=== PATIENT | female | born 1990 | race Caucasian/White ===

== ENCOUNTER 2017-06-05 08:14 | Emergency (ER) | payer OTHER ==
[~2017-06-05] VITALS: Ht 172.7 cm; Wt 88.5 kg
[2017-06-05 08:16] VITALS: BP_SYST 73; PULSE 90; RESP 18; TEMP 97.3; O2SAT 100
[2017-06-05] MEDS ORDERED: PREN29TA PO (08:22)
[2017-06-05] MEDS ORDERED: LEVO112T2 PO (08:22)
[2017-06-05] MEDS ORDERED: METF500T PO (08:22)
[2017-06-05] MEDS ORDERED: SODIUM CHLOR 0.9% 1000 ML INJ 1,000 ML IV ONE (08:28)
[2017-06-05 08:30] VITALS: BP 130/68; PULSE 86; RESP 16; TEMP 97.8; O2SAT 99
--- NOTE | 2017-06-05 08:53 | PD ---
HPI Chief Complaint: Related Problem Time Seen by Provider: 08:20 Travel History International Travel<30 days: No Contact w/Intl Traveler<30days: No History of Present Illness HPI The patient is a 26-year-old female who presents emergency Department for vaginal bleeding in . Patient is whose last menstrual cycle was April 17, approximately 7 weeks per patient's report. The patient has followed up with her primary physician but has not seen an elevator builder or obtain an ultrasound in regards to this . The patient is currently on vacation from [employer] from [place]. The patient developed vaginal bleeding last night which has some bright red blood followed by dark red blood clots. She denies any pelvic pain or discomfort. She denies any dysuria, frequency, urgency, or discharge. Symptoms are moderate. The patient does have a history of polycystic ovarian syndrome and hypothyroidism. Symptoms are mild, related to , no current alleviating factors. PFSH Past Medical History Narrative Medical Polycystic ovarian syndrome, hypothyroidism, endometriosis Diabetes: Yes Patient Takes Glucophage: Yes Diminished Hearing: No Medical other: Yes (DM) Thyroid Disease: Yes Tetanus Vaccination: > 5 Years Influenza Vaccination: No ?: LMP: 04/17/17 : 1 Past Surgical History Other Surgery: Yes (laparascopy for endometriosis ) Social History Alcohol Use: No Tobacco Use: No Substance Use: No Allergies-Medications (Allergen,Severity, Reaction): Coded Allergies: No Known Allergies (Verified Allergy, Unknown, 06/05/17) Reported Meds & Prescriptions Reported Meds & Active Scripts Active Reported Plus Iron 29-1 mg ( Vit-Iron Carbonyl) 29 Mg Iron-1 Mg Tab 1 Tab PO DAILY Levothyroxine (Levothyroxine Sodium) 112 Mcg Tab 112 Mcg PO DAILY Metformin (Metformin HCl) 500 Mg Tab 500 Mg PO BIDPC Review of Systems Except as stated in HPI: all other systems reviewed are Neg General / Constitutional: No: Fever Cardiovascular: No: Chest Pain or Discomfort Respiratory: No: Shortness of Breath Gastrointestinal: No: Nausea, Vomiting, Abdominal Pain Genitourinary: Positive: Vaginal Bleeding, No: Dysuria, Pelvic Pain, Flank Pain , Discharge Skin: No Rash Physical Exam Narrative GENERAL: Awake, alert, pleasant 26 year-old female who appears her stated age and is in no acute respiratory distress. SKIN: Focused skin assessment warm/dry. HEAD: Atraumatic. Normocephalic. EYES: No injection or drainage. NECK: Trachea midline. No JVD. CARDIOVASCULAR: Regular rate and rhythm. No murmur appreciated. GASTROINTESTINAL: Abdomen soft, non-tender, nondistended. No rebound tenderness , guarding, rigidity. Back: No CVA tenderness. Genitourinary: The exam was performed in the presence of a female nurse. No rashes or lesions noted. Blood noted at the introitus. Pelvic examination does reveal blood in the vaginal vault. Cervix is closed, bluish tinge noted. MUSCULOSKELETAL: No obvious deformities. No clubbing. No cyanosis. No edema. NEUROLOGICAL: Awake and alert. No obvious cranial nerve deficits. Motor grossly within normal limits. Normal speech. PSYCHIATRIC: Appropriate mood and affect; insight and judgment normal. Data Data Last Documented VS Vital Signs Date Time Temp Pulse Resp B/P (MAP) Pulse Ox O2 Delivery O2 Flow Rate FiO2 06/05/17 08:30 97.8 86 16 130/68 (88) 99 Room Air Orders Orders Beta Hcg (Quant/Titer) (06/05/17 08:28) Complete Rh (06/05/17 08:28) Us Pelvis (Ques Pr/Ect)W Trans (06/05/17 ) Urinalysis - C+S If Indicated (06/05/17 08:28) Iv Access Insert/Monitor (06/05/17 08:28) Ecg Monitoring (06/05/17 08:28) Sodium Chlor 0.9% 1000 Ml Inj (Ns 1000 M (06/05/17 08:28) Ed Urine Pregnancytest Poc (06/05/17 08:28) Ed Discharge Order (06/05/17 10:48) Labs Laboratory Tests Test 06/05/17 08:28 06/05/17 08:30 Urine Color YELLOW Urine Turbidity CLEAR Urine pH 5.5 Urine Specific [place] 1.017 Urine Protein NEG mg/dL Urine Glucose (UA) NEG mg/dL Urine Ketones NEG mg/dL Urine Occult Blood TRACE Urine Nitrite NEG Urine Bilirubin NEG Urine Urobilinogen LESS THAN 2.0 MG/DL Urine Leukocyte Esterase NEG Urine RBC LESS THAN 1 /hpf Urine WBC LESS THAN 1 /hpf Urine Mucus FEW /lpf Microscopic Urinalysis Comment CULT NOT INDICATED Human Chorionic Gonadotropin, Quant 553 MIU/ML MDM Medical Decision Making Medical Screen Exam Complete: Yes Emergency Medical Condition: Yes Medical Record Reviewed: Yes Interpretation(s) Laboratory Tests Test 06/05/17 08:28 06/05/17 08:30 Urine Color YELLOW Urine Turbidity CLEAR Urine pH 5.5 Urine Specific [place] 1.017 Urine Protein NEG mg/dL Urine Glucose (UA) NEG mg/dL Urine Ketones NEG mg/dL Urine Occult Blood TRACE Urine Nitrite NEG Urine Bilirubin NEG Urine Urobilinogen LESS THAN 2.0 MG/DL Urine Leukocyte Esterase NEG Urine RBC LESS THAN 1 /hpf Urine WBC LESS THAN 1 /hpf Urine Mucus FEW /lpf Microscopic Urinalysis Comment CULT NOT INDICATED Human Chorionic Gonadotropin, Quant 553 MIU/ML Last Impressions Pelvis Ultrasound 06/05/17 0000 Signed Impressions: Service Date/Time: Monday, June 05, 2017 09:03 - CONCLUSION: 1. Apparent tiny intrauterine gestational sac which demonstrates no pole or yolk sac. Differential diagnosis includes very early intrauterine , missed or ectopic . Correlation with serial beta-hCG levels is recommended. 2. Some free fluid within the cul-de-sac. 3. Unremarkable ovaries bilaterally. Vicente Rice MD Differential Diagnosis Differential diagnosis includes ectopic , threatened AB, incomplete AB , normal , UTI, vaginitis, cervicitis, PID. Narrative Course IV was established, labs are drawn and sent, and the patient was placed on cardiac telemetry monitoring and continuous pulse oximetry monitoring. Pelvic exam was completed. Quantitative beta hCG was sent to lab and Rh status was sent to lab. Ultrasound was ordered to evaluate for IUP versus ectopic . The patient's blood type is a positive, therefore, no RhoGAM indicated. Beta HCG 553, low for 7 weeks gestation. UA unremarkable. The ultrasound reveals intrauterine gestational sac but there is no yolk sac or pole. Differential includes ectopic , missed , early . Patient is pain-free, will need serial beta hCG repeated in 48-72 hours. She will be provided a copy of her ultrasound results and lab results at discharge. She is advised to follow-up with her primary physician and/or elevator builder. Return if symptoms worsen or progress. Diagnosis Primary Impression: Vaginal bleeding during Patient Instructions: General Instructions Additional Instructions: Please provide the patient a copy of her ultrasound results and lab results at discharge. Repeat beta hCG in 48-72 hours. Return if symptoms worsen or progress. Follow-up with your primary physician and/or elevator builder. Med/Other Pt SpecificInfo: No Change to Meds Disposition: 01 DISCHARGE HOME Condition: Stable Gerald Way MD Jun 05, 2017 08:53
[2017-06-05 09:08] LABS: BILIRUBIN, URINE NEG (NEG); BLOOD, URINE TRACE (NEG); GLUCOSE,URINE NEG (NEG); KETONE, URINE NEG (NEG); MUCUS URINE FEW /lpf (OCC); NITRITE,URINE NEG (NEG); PH, URINE 5.5 (5.0-8.5); URINE COLOR YELLOW (YELLW/STRAW); URINE LEUKOCYTE ESTERASE NEG (NEG)
--- NOTE | 2017-06-05 10:11 | RADRPT ---
EXAM DATE/TIME: 06/05/2017 09:03 [facility] COMPARISON: No previous studies available for comparison. INDICATIONS : Vaginal bleeding of large clots. LAB(S): Beta-hC MEDICAL HISTORY : Thyroid disease. Diabetes. SURGICAL HISTORY : Laparoscopy for endometriosis. ENCOUNTER: Initial ACUITY: 4-6 days PAIN SCORE: 0/10 LOCATION: Bilateral pelvis MEASUREMENTS: UTERUS: 8.5 x 6.0 x 4.0 cm ENDOMETRIAL STRIPE: 17 mm RIGHT OVARY: 3.2 x 3.1 x 1.2 cm LEFT OVARY: 2.8 x 1.9 x1.6 cm FREE FLUID: Some free fluid is noted within the cul-de-sac. CROWN RUMP LENGTH: Not visualized FHR: Not visualized FINDINGS: There is an apparent tiny intrauterine gestational sac which demonstrates no pole or yolk sac. Differential diagnosis includes very early intrauterine , missed or ectopic pregnan cy. Correlation with serial beta hCG levels is recommended. The ovaries are unremarkable bilaterally. Some free fluid is noted within the cul-de-sac. CONCLUSION: 1. Apparent tiny intrauterine gestational sac which demonstrates no pole or yolk sac. Different ial diagnosis includes very early intrauterine , missed or ectopic . Corre lation with serial beta-hCG levels is recommended. 2. Some free fluid within the cul-de-sac. 3. Unremarkable ovaries bilaterally. Vicente Rice MD on June 05, 2017 at 10:06 Board Certified Radiologist. This report was verified electronically.
[2017-06-05 11:16] VITALS: BP 107/66; PULSE 83; RESP 14; O2SAT 99
== END 2017-06-05 11:18 | disposition home or self-care (01) ==
LOC: NEPE 08:14
DX: O20.9 Hemorrhage in early pregnancy, unspecified (principal); Z3A.01 Less than 8 weeks gestation of pregnancy
CPT/HCPCS: 76700; 76817; 81001; 84702; 84703; 86901; 99284; J7030